=== PATIENT | female | born 1950 | race Caucasian/White ===

== ENCOUNTER 2017-10-23 04:12 | Emergency (ER) | payer MEDICARE, MEDICAID ==
[~2017-10-23] VITALS: Ht 168.9 cm; Wt 89.5 kg
[~2017-10-23 04:12] MED LIST: ASPIRIN EC81 MG PO; EFFIENT10 MG PO; GLIMEPIRIDE1 MG PO; GLUCOPHAGE1000 MG PO; IMDUR30 MG PO; KENALOG 0.025 %15 GM TP; KLONOPIN0.5 MG; LUMIGAN 0.01%; NEURONTIN 100100 MG; NITROSTAT0.4 MG SL; PEPCID20 MG; PRINIVIL20 MG PO; RYBIX ODT50 MG; ZOCOR20 MG PO; ZOLOFT100 MG PO
[2017-10-23 04:16] VITALS: Ht 168.9 cm; Wt 89.5 kg
[2017-10-23 05:02] LABS: BASOPHILS 0.5 % (0-2); EOSINOPHILS 5.9 % (0-7); IMMATURE GRANULOCYTES 0.2 % (0-5); LYMPHOCYTES 27.6 % (15-50); MCH 29.3 pg (26.0-34.0); MCHC 33.3 g/dL (31.0-37.0); MEAN PLATELET VOLUME 10.4 fL (7.4-10.4); MONOCYTES 8.8 % (2-11); PLATELET COUNT 183 10x3/uL (130-400); RBC 4.09 10x6/uL (4.00-5.40); RDW 12.7 % (11.5-14.5); WBC 8.7 10x3/uL (4.8-10.8)
[2017-10-23 05:19] LABS: ANION GAP 10.1 mmol/L (8-16); CALCIUM 9.6 mg/dL (8.5-10.1); CARBON DIOXIDE 29.3 mmol/L (21.0-32.0); CREATININE - SERUM 0.9 mg/dL (0.6-1.3); POTASSIUM - SERUM 4.4 mmol/L (3.5-5.1)
[2017-10-23 05:21] LABS: APTT 27.6 SECONDS (22.8-39.4); INR 0.98 (0.85-1.17); PROTIME 12.6 SECONDS (11.6-15.0)
[2017-10-23 07:08] VITALS: BP 141/73
== END 2017-10-23 07:10 | disposition home or self-care (01) ==
LOC: D.ER 04:12
PROVIDERS: Emergency Medicine
DX: S06.5X9A Traumatic subdural hemorrhage with loss of consciousness of unspecified duration, initial encounter (principal); W19.XXXA Unspecified fall, initial encounter; Y93.89 Activity, other specified; Y92.019 Unspecified place in single-family (private) house as the place of occurrence of the external cause; S01.01XA Laceration without foreign body of scalp, initial encounter; M54.2 Cervicalgia; Z87.820 Personal history of traumatic brain injury; E11.9 Type 2 diabetes mellitus without complications; I10 Essential (primary) hypertension; R05 Cough